=== PATIENT | female | born 1940 | race Caucasian/White ===

== ENCOUNTER → 2016-05-20 | Outpatient (CLI) | payer MEDICARE, OTHER ==
[~2016-05-20] MED LIST: ALBUAER3 IN; ASPI325T47 PO; DABI150C PO; DIG0125T PO; DILT180C88 PO; FLEC100T21 PO; FLUT250M2 INH; FURO40TA PO; LISI-646 PO; LORA1TAB12 PO; METO-5 PO; PANT1INJ3 PO; POTA10TA34 PO; TEMA15CA91 PO
== END | disposition home or self-care (01) ==
LOC: Rad HDHVI 12:46
PROVIDERS: ATTEND Internal Medicine Cardiovascular Disease
DX: I11.0 Hypertensive heart disease with heart failure (principal); I10 Essential (primary) hypertension; I25.10 Atherosclerotic heart disease of native coronary artery without angina pectoris
CPT/HCPCS: 71020

== ENCOUNTER → 2017-03-30 | Outpatient (CLI) | payer MEDICARE, OTHER ==
[2017-03-30 12:22] LABS: Eosinophils # (auto) 0.1 uL; Lymphocytes # (auto) 0.9 uL; Mean Corpuscular Hemoglobin 34.5 pg (28.0-32.0); Nucleated Red Blood Cells % 0.1 %; White Blood Cell 5.2 10^3/uL (4.4-10.8)
[2017-03-30 12:24] LABS: Basophils # (auto) 0.1 uL; Eosinophils % (auto) 2.2 % (0.0-7.0); Hematocrit 40.9 % (36.0-46.0); Hemoglobin 14.4 g/dL (12.2-16.2); Mean Corpuscular Hgb Conc. 35.2 g/dL (32.0-36.0); Mean Corpuscular Volume 98.1 fL (80.0-100.0); Mean Platelet Volume 8.5 fL (6.9-10.8); Monocytes # (auto) 0.3 uL; Monocytes % (auto) 6.1 % (0.0-12.0); Neutrophils # (auto) 3.7 uL; Neutrophils % (auto) 72.7 % (37.0-80.0); Platelet Count (auto) 191 10^3/uL (140-450); Red Cell Distribution Width 13.1 % (11.8-14.3)
[2017-03-30 12:39] LABS: Albumin 4.5 g/dL (3.4-5.0); BUN/Creatinine Ratio 8.9; Bilirubin, Direct 0.3 mg/dL (0-0.2); Bilirubin, Total 1.2 mg/dL (0.2-1.0); Calcium 8.8 mg/dL (8.5-10.1); Total Protein 8.2 g/dL (6.4-8.2)
== END | disposition home or self-care (01) ==
LOC: Rad HDHVI 10:15
PROVIDERS: ATTEND Internal Medicine Cardiovascular Disease
DX: M51.26 Other intervertebral disc displacement, lumbar region (principal); I70.0 Atherosclerosis of aorta; M12.88 Other specific arthropathies, not elsewhere classified, other specified site; M41.86 Other forms of scoliosis, lumbar region; I10 Essential (primary) hypertension; E78.00 Pure hypercholesterolemia, unspecified; K74.1 Hepatic sclerosis; E11.9 Type 2 diabetes mellitus without complications; E03.9 Hypothyroidism, unspecified; D64.9 Anemia, unspecified; E55.9 Vitamin D deficiency, unspecified
CPT/HCPCS: 36415; 72100; 80048; 80061; 80076; 82306; 83036; 84443; 85025

== ENCOUNTER → 2017-04-10 | Outpatient (CLI) | payer MEDICARE, OTHER ==
[2017-04-10 11:30] VITALS: BP 144/80
== END | disposition home or self-care (01) ==
LOC: CHF HDHVI 10:44
PROVIDERS: ATTEND Internal Medicine Cardiovascular Disease
DX: E87.1 Hypo-osmolality and hyponatremia (principal); J44.9 Chronic obstructive pulmonary disease, unspecified
CPT/HCPCS: 36415; 84295; G0463

== ENCOUNTER → 2017-05-11 | Outpatient (CLI) | payer MEDICARE, OTHER ==
[2017-05-11 16:08] LABS: BUN/Creatinine Ratio 9.6; Calcium 8.7 mg/dL (8.5-10.1); Potassium 4.5 mmol/L (3.5-5.1)
== END | disposition home or self-care (01) ==
LOC: LAB 10:16
PROVIDERS: ATTEND Internal Medicine Cardiovascular Disease
DX: I10 Essential (primary) hypertension (principal)
CPT/HCPCS: 36415; 80048

== ENCOUNTER → 2017-07-10 | Outpatient (CLI) | payer MEDICARE, OTHER ==
[~2017-07-10] MED LIST changes: +IOHEXOL 350 MG/ML 100ML IJ ONE
[2017-07-10 12:25] VITALS: BP_SYST 157; BP_SYST 163; BP_DIAS 77
[2017-07-10 16:30] LABS: Basophils # (auto) 0 uL; Eosinophils # (auto) 0.1 uL; Monocytes # (auto) 0.4 uL; Neutrophils # (auto) 2.2 uL; Platelet Count (auto) 197 10^3/uL (140-450)
[2017-07-10 16:32] LABS: Basophils % (auto) 0.8 % (0.0-2.0); Eosinophils % (auto) 2.2 % (0.0-7.0); Hematocrit 38.4 % (36.0-46.0); Hemoglobin 13.4 g/dL (12.2-16.2); Lymphocytes % (auto) 27.9 % (10.0-50.0); Mean Corpuscular Hgb Conc. 34.8 g/dL (32.0-36.0); Mean Corpuscular Volume 100.6 fL (80.0-100.0); Monocytes % (auto) 11.6 % (0.0-12.0); Neutrophils % (auto) 57.5 % (37.0-80.0); Nucleated Red Blood Cells % 0.4 %; Red Blood Cells 3.82 10^6/uL (4.0-5.20); Red Cell Distribution Width 13.1 % (11.8-14.3); White Blood Cell 3.8 10^3/uL (4.4-10.8)
[2017-07-10 16:35] LABS: Urine Blood Negative /uL (Negative); Urine Specific Gravity 1.046 (1.001-1.035)
[2017-07-10 16:39] LABS: Albumin 3.9 g/dL (3.4-5.0); BUN/Creatinine Ratio 14.3; Bilirubin, Direct 0.2 mg/dL (0-0.2); Bilirubin, Total 0.7 mg/dL (0.2-1.0); Calcium 8.8 mg/dL (8.5-10.1); Total Protein 7.5 g/dL (6.4-8.2)
== END | disposition home or self-care (01) ==
LOC: Rad HDHVI 12:06
PROVIDERS: ATTEND Internal Medicine Cardiovascular Disease
DX: E78.00 Pure hypercholesterolemia, unspecified (principal); I48.91 Unspecified atrial fibrillation; I10 Essential (primary) hypertension; D64.9 Anemia, unspecified; I67.2 Cerebral atherosclerosis; E03.9 Hypothyroidism, unspecified; E55.9 Vitamin D deficiency, unspecified; K74.1 Hepatic sclerosis; E11.9 Type 2 diabetes mellitus without complications; N39.0 Urinary tract infection, site not specified; Z79.899 Other long term (current) drug therapy
CPT/HCPCS: 36415; 70470; 80048; 80061; 80076; 80162; 81003; 82306; 82565; 83036; 84443; 85025; 96374; G0463; Q9967

== ENCOUNTER → 2017-07-11 | Outpatient (CLI) | payer MEDICARE, OTHER ==
[~2017-07-11] MED LIST changes: +DILTIAZEM HCL 180MG ER CAP PO ONE; +FLECAINIDE ACETATE 50 MG TAB PO ONE; -IOHEXOL 350 MG/ML 100ML IJ ONE; +LISINOPRIL 10 MG TAB ONE; +LISINOPRIL 10 MG TAB PO ONE; +SODIUM CHLORIDE 0.9% 500 ML IV ONE
[2017-07-11 14:40] VITALS: BP 169/84
== END | disposition home or self-care (01) ==
LOC: CHF HDHVI 11:06
PROVIDERS: ATTEND Internal Medicine Cardiovascular Disease
DX: E87.1 Hypo-osmolality and hyponatremia (principal)
CPT/HCPCS: 96360; 96361; G0463; J7040

== ENCOUNTER → 2017-07-25 | Outpatient (CLI) | payer MEDICARE, OTHER ==
[~2017-07-25] MED LIST changes: -DILTIAZEM HCL 180MG ER CAP PO ONE; -FLECAINIDE ACETATE 50 MG TAB PO ONE; -LISINOPRIL 10 MG TAB ONE; -LISINOPRIL 10 MG TAB PO ONE; -SODIUM CHLORIDE 0.9% 500 ML IV ONE
[2017-07-25 16:12] LABS: BUN/Creatinine Ratio 10.7; Calcium 8.9 mg/dL (8.5-10.1); Potassium 3.8 mmol/L (3.5-5.1)
== END | disposition home or self-care (01) ==
LOC: LAB 11:05
PROVIDERS: ATTEND Internal Medicine Cardiovascular Disease
DX: I10 Essential (primary) hypertension (principal); J44.9 Chronic obstructive pulmonary disease, unspecified
CPT/HCPCS: 36415; 80048

== ENCOUNTER → 2017-07-26 | Outpatient (CLI) | payer MEDICARE, OTHER | END | disposition home or self-care (01) | LOC: LAB 09:56 | PROVIDERS: ATTEND Internal Medicine Cardiovascular Disease | DX: J44.9 Chronic obstructive pulmonary disease, unspecified (principal); R82.79 Other abnormal findings on microbiological examination of urine | CPT/HCPCS: 36415; 83935 ==

== ENCOUNTER → 2017-07-31 | Outpatient (CLI) | payer MEDICARE, OTHER | END | disposition home or self-care (01) | LOC: Rad HDHVI 12:43 | PROVIDERS: ATTEND Internal Medicine Cardiovascular Disease | DX: I08.1 Rheumatic disorders of both mitral and tricuspid valves (principal); I10 Essential (primary) hypertension; I48.0 Paroxysmal atrial fibrillation | CPT/HCPCS: 93306 ==

== ENCOUNTER → 2017-08-23 | Outpatient (CLI) | payer MEDICARE, OTHER ==
[~2017-08-23] MED LIST changes: +ADENOSINE 45 MG in GIVE UN-DILUTED 0 ML IV ONE; +ADENOSINE 90 MG/30 ML INJ IV ONE
== END | disposition home or self-care (01) ==
LOC: Rad HDHVI 13:16
PROVIDERS: ATTEND Internal Medicine Cardiovascular Disease
DX: I10 Essential (primary) hypertension (principal); I48.0 Paroxysmal atrial fibrillation; E11.9 Type 2 diabetes mellitus without complications; Z79.899 Other long term (current) drug therapy
CPT/HCPCS: 78452; 93005; 96374; 96375; A9500; J0153

== ENCOUNTER → 2017-10-05 | Outpatient (CLI) | payer MEDICARE, OTHER ==
[~2017-10-05] MED LIST changes: -ADENOSINE 45 MG in GIVE UN-DILUTED 0 ML IV ONE; -ADENOSINE 90 MG/30 ML INJ IV ONE; +READI-CAT 2 (BARIUM SULF)(VANILLA SMOOTHIE) 450ML ONE
== END | disposition home or self-care (01) ==
LOC: Rad HDHVI 14:23
PROVIDERS: ATTEND Internal Medicine Cardiovascular Disease
DX: K76.0 Fatty (change of) liver, not elsewhere classified (principal); K80.20 Calculus of gallbladder without cholecystitis without obstruction; K57.30 Diverticulosis of large intestine without perforation or abscess without bleeding; I10 Essential (primary) hypertension; E11.9 Type 2 diabetes mellitus without complications; K21.9 Gastro-esophageal reflux disease without esophagitis; K29.70 Gastritis, unspecified, without bleeding; Z79.899 Other long term (current) drug therapy
CPT/HCPCS: 74176

== ENCOUNTER → 2018-07-10 | Outpatient (CLI) | payer MEDICARE, OTHER ==
[~2018-07-10] MED LIST changes: +ASPI-123 PO; -ASPI325T47 PO; -POTA10TA34 PO; +POTA1TAB61 PO; -READI-CAT 2 (BARIUM SULF)(VANILLA SMOOTHIE) 450ML ONE
== END | disposition home or self-care (01) ==
LOC: Rad HDHVI 10:29
PROVIDERS: ATTEND Internal Medicine Cardiovascular Disease
DX: I51.7 Cardiomegaly (principal); I70.0 Atherosclerosis of aorta; M95.4 Acquired deformity of chest and rib
CPT/HCPCS: 71046

== ENCOUNTER → 2018-07-13 | Outpatient (CLI) | payer MEDICARE, OTHER | END | disposition home or self-care (01) | LOC: Rad HDHVI 11:19 | PROVIDERS: ATTEND Internal Medicine Cardiovascular Disease | DX: M81.8 Other osteoporosis without current pathological fracture (principal) | CPT/HCPCS: 77078 ==

== ENCOUNTER → 2018-07-30 | Outpatient (CLI) | payer MEDICARE, OTHER | END | disposition home or self-care (01) | LOC: Rad HDHVI 13:20 | PROVIDERS: ATTEND Internal Medicine Cardiovascular Disease | DX: I11.9 Hypertensive heart disease without heart failure (principal); I70.0 Atherosclerosis of aorta; J44.9 Chronic obstructive pulmonary disease, unspecified; R09.89 Other specified symptoms and signs involving the circulatory and respiratory systems | CPT/HCPCS: 71046 ==

== ENCOUNTER → 2018-08-08 | Outpatient (CLI) | payer MEDICARE, OTHER | END | disposition home or self-care (01) | LOC: Rad HDHVI 12:10 | PROVIDERS: ATTEND Internal Medicine Cardiovascular Disease | DX: M85.811 Other specified disorders of bone density and structure, right shoulder (principal) | CPT/HCPCS: 73030 ==

== ENCOUNTER → 2018-08-14 | Outpatient (CLI) | payer MEDICARE, OTHER ==
[2018-08-14 13:01] LABS: Calcium 8.7 mg/dL (8.5-10.1); Potassium 4.3 mmol/L (3.5-5.1)
[2018-08-14 13:03] LABS: BUN/Creatinine Ratio 10.9
== END | disposition home or self-care (01) ==
LOC: LAB 10:30
PROVIDERS: ATTEND Internal Medicine
DX: I10 Essential (primary) hypertension (principal); J44.9 Chronic obstructive pulmonary disease, unspecified
CPT/HCPCS: 36415; 80048

== ENCOUNTER 2018-09-03 21:08 | Inpatient (IN) | payer MEDICARE, OTHER | END 2018-09-07 16:00 | disposition home or self-care (01) | LOC: TELE 09-04 07:35 → TELE-WESTW 09-04 12:09 → ER 21:08 | DX: J44.1 Chronic obstructive pulmonary disease with (acute) exacerbation (principal); I50.43 Acute on chronic combined systolic (congestive) and diastolic (congestive) heart failure; J96.90 Respiratory failure, unspecified, unspecified whether with hypoxia or hypercapnia; E87.1 Hypo-osmolality and hyponatremia; I11.0 Hypertensive heart disease with heart failure; I48.91 Unspecified atrial fibrillation; K21.9 Gastro-esophageal reflux disease without esophagitis; F41.9 Anxiety disorder, unspecified; J20.9 Acute bronchitis, unspecified; J44.0 Chronic obstructive pulmonary disease with (acute) lower respiratory infection ==

== ENCOUNTER 2018-09-08 12:44 | Inpatient (IN) | payer MEDICARE | END 2018-09-14 18:35 | disposition home or self-care (01) | LOC: ER 12:44 → TELE-EAST 17:36 | DX: I48.91 Unspecified atrial fibrillation (principal); E87.1 Hypo-osmolality and hyponatremia; I50.9 Heart failure, unspecified; J44.9 Chronic obstructive pulmonary disease, unspecified; I11.0 Hypertensive heart disease with heart failure ==

== ENCOUNTER → 2018-09-17 | Outpatient (CLI) | payer MEDICARE ==
[~2018-09-17] MED LIST changes: +ACET-1158 PO; -DABI150C PO; -DIG0125T PO; -FLEC100T21 PO; +LEVO500T21 PO; +MAGN400T21 PO; -METO-5 PO; +SOTA80TA20 PO
== END | disposition home or self-care (01) ==
LOC: Rad HDHVI 13:08
PROVIDERS: ATTEND Internal Medicine
DX: J43.9 Emphysema, unspecified (principal); I11.0 Hypertensive heart disease with heart failure; I70.0 Atherosclerosis of aorta; M77.8 Other enthesopathies, not elsewhere classified
CPT/HCPCS: 71250

== ENCOUNTER 2018-09-21 23:21 | Emergency (ER) | payer MEDICARE ==
[~2018-09-21] VITALS: Ht 154.9 cm; Wt 55.8 kg
[2018-09-22 00:37] LABS: Basophils # (auto) 0 uL; Lymphocytes # (auto) 1.3 uL; Monocytes # (auto) 0.4 uL; Nucleated Red Blood Cells % 0.1 %
[2018-09-22 00:40] LABS: Eosinophils # (auto) 0.3 uL; Eosinophils % (auto) 5.2 % (0.0-7.0); Hematocrit 39.4 % (36.0-46.0); Hemoglobin 13.4 g/dL (12.2-16.2); Lymphocytes % (auto) 26.7 % (10.0-50.0); Mean Corpuscular Hemoglobin 34.2 pg (28.0-32.0); Mean Corpuscular Volume 100.7 fL (80.0-100.0); Neutrophils # (auto) 2.9 uL; Neutrophils % (auto) 59.1 % (37.0-80.0); Platelet Count (auto) 203 10^3/uL (140-450); Red Blood Cells 3.91 10^6/uL (4.0-5.20); Red Cell Distribution Width 13.3 % (11.8-14.3); White Blood Cell 4.8 10^3/uL (4.4-10.8)
[2018-09-22 00:44] LABS: INR 1.15 (0.9-1.15); Partial Thromboplastin Time 48.3 sec (23.78-33.04); Prothrombin Time 12.2 sec (9.27-12.13)
[2018-09-22 05:58] LABS: Anion Gap 9 (5-15); Carbon Dioxide 23 mmol/L (21-32); Chloride 104 mmol/L (98-107); Potassium 3.9 mmol/L (3.5-5.1); Sodium 136 mmol/L (136-145)
[2018-09-22 05:59] LABS: Alanine Aminotransferase 26 U/L (13-56); Albumin 3.6 g/dL (3.4-5.0); Alkaline Phosphatase 59 U/L (45-117); Aspartate Aminotransferase 14 U/L (15-37); BUN/Creatinine Ratio 15.2; Bilirubin, Total 0.7 mg/dL (0.2-1.0); Blood Urea Nitrogen 10 mg/dL (7-18); GFR African American 112 mL/min; GFR Non-African American 93 mL/min; Glucose 101 mg/dL (74-106); Total Protein 6.9 g/dL (6.4-8.2)
[2018-09-22] MEDS ORDERED: LISINOPRIL 20 MG TAB ONE (06:30)
[2018-09-22 11:51] VITALS: BP 179/83
[2018-09-22 12:05] LABS: Urine Bacteria NONE SEEN /hpf (None Seen); Urine Blood Negative /uL (Negative); Urine WBC <1 /hpf (0 - 5)
== END 2018-09-22 13:13 | disposition home or self-care (01) ==
LOC: EDBD 23:21 → EDUNIT# 23:21 → ER 23:23
DX: R07.89 Other chest pain (principal); I11.0 Hypertensive heart disease with heart failure; I50.9 Heart failure, unspecified; J44.9 Chronic obstructive pulmonary disease, unspecified; I48.91 Unspecified atrial fibrillation; Z88.0 Allergy status to penicillin; Z88.6 Allergy status to analgesic agent; Z88.2 Allergy status to sulfonamides; Z88.8 Allergy status to other drugs, medicaments and biological substances
CPT/HCPCS: 36415; 71045; 80053; 81001; 83880; 84484; 85025; 85610; 85730; 93005

== ENCOUNTER → 2018-10-02 | Outpatient (CLI) | payer MEDICARE ==
[2018-10-02 16:14] LABS: BUN/Creatinine Ratio 21.7; Calcium 8.9 mg/dL (8.5-10.1); Magnesium 2.5 mg/dL (1.6-2.6); Potassium 4.3 mmol/L (3.5-5.1)
== END | disposition home or self-care (01) ==
LOC: LAB 12:44
PROVIDERS: ATTEND Internal Medicine Cardiovascular Disease
DX: E83.40 Disorders of magnesium metabolism, unspecified (principal); I11.0 Hypertensive heart disease with heart failure; I50.9 Heart failure, unspecified
CPT/HCPCS: 36415; 80048; 83735

== ENCOUNTER → 2018-10-11 | Outpatient (CLI) | payer MEDICARE | END | disposition home or self-care (01) | LOC: Rad HDHVI 12:59 | PROVIDERS: ATTEND Internal Medicine Cardiovascular Disease | DX: I08.1 Rheumatic disorders of both mitral and tricuspid valves (principal); I48.1 Persistent atrial fibrillation; R06.02 Shortness of breath; I11.0 Hypertensive heart disease with heart failure; I50.9 Heart failure, unspecified | CPT/HCPCS: 93306 ==

== ENCOUNTER → 2018-11-06 | Outpatient (CLI) | payer MEDICARE ==
[2018-11-06 16:29] LABS: BUN/Creatinine Ratio 9.4; Calcium 8.8 mg/dL (8.5-10.1); Magnesium 2.7 mg/dL (1.6-2.6); Potassium 4.1 mmol/L (3.5-5.1)
== END | disposition home or self-care (01) ==
LOC: LAB 13:37
PROVIDERS: ATTEND Internal Medicine Cardiovascular Disease
DX: I11.0 Hypertensive heart disease with heart failure (principal); I50.9 Heart failure, unspecified; E83.40 Disorders of magnesium metabolism, unspecified; E87.1 Hypo-osmolality and hyponatremia
CPT/HCPCS: 36415; 80048; 83735; 83880; 83935

== ENCOUNTER → 2018-12-17 | Outpatient (CLI) | payer MEDICARE ==
[~2018-12-17] MED LIST changes: +FURO1TAB31 PO; -FURO40TA PO
[2018-12-17 16:15] LABS: BUN/Creatinine Ratio 9.7; Calcium 8.9 mg/dL (8.5-10.1); Potassium 4.5 mmol/L (3.5-5.1)
[2018-12-17 16:59] LABS: INR 1.17 (0.9-1.15)
[2018-12-17 17:35] LABS: Basophils # (auto) 0.1 uL; Eosinophils # (auto) 0.1 uL; Lymphocytes # (auto) 1.1 uL; Mean Corpuscular Volume 99.9 fL (80.0-100.0); Monocytes # (auto) 0.4 uL; Neutrophils # (auto) 3.1 uL; White Blood Cell 4.8 10^3/uL (4.4-10.8)
[2018-12-17 17:38] LABS: Basophils % (auto) 1.5 % (0.0-2.0); Eosinophils % (auto) 2.7 % (0.0-7.0); Hematocrit 38.5 % (36.0-46.0); Hemoglobin 13.2 g/dL (12.2-16.2); Lymphocytes % (auto) 22.9 % (10.0-50.0); Mean Corpuscular Hemoglobin 34.3 pg (28.0-32.0); Mean Corpuscular Hgb Conc. 34.3 g/dL (32.0-36.0); Monocytes % (auto) 7.7 % (0.0-12.0); Neutrophils % (auto) 65.2 % (37.0-80.0); Nucleated Red Blood Cells % 0.2 %; Platelet Count (auto) 202 10^3/uL (140-450); Red Blood Cells 3.86 10^6/uL (4.0-5.20); Red Cell Distribution Width 13.6 % (11.8-14.3)
== END | disposition home or self-care (01) ==
LOC: LAB 13:08
PROVIDERS: ATTEND Internal Medicine Cardiovascular Disease
DX: Z01.812 Encounter for preprocedural laboratory examination (principal); D64.9 Anemia, unspecified; R79.1 Abnormal coagulation profile; I10 Essential (primary) hypertension; I47.9 Paroxysmal tachycardia, unspecified; I48.2 Chronic atrial fibrillation; J44.9 Chronic obstructive pulmonary disease, unspecified; Z87.891 Personal history of nicotine dependence
CPT/HCPCS: 36415; 80048; 85025; 85610; 85730

== ENCOUNTER → 2019-02-28 | Outpatient (CLI) | payer MEDICARE ==
[2019-02-28 12:13] LABS: Potassium 4.3 mmol/L (3.5-5.1)
[2019-02-28 12:20] LABS: BUN/Creatinine Ratio 9.4
== END | disposition home or self-care (01) ==
LOC: LAB 10:41
PROVIDERS: ATTEND Internal Medicine Cardiovascular Disease
DX: E78.5 Hyperlipidemia, unspecified (principal); E83.40 Disorders of magnesium metabolism, unspecified; I11.0 Hypertensive heart disease with heart failure; I50.9 Heart failure, unspecified
CPT/HCPCS: 36415; 80048; 80061; 83735